=== PATIENT | male | born 1985 | race Caucasian/White ===

== ENCOUNTER 2022-03-18 19:46 | Emergency (ER) | payer OTHER, SELFPAY ==
[2022-03-18 19:46] VITALS: BP 135/85; PULSE 101; RESP 16; TEMP 36.6; O2SAT 99; BMI 32.3
--- NOTE | 2022-03-18 20:13 | EKG12_ITS ---
Test Reason : CP Blood Pressure : / mmHG Vent. Rate : 089 BPM Atrial Rate : 089 BPM P-R Int : 138 ms QRS Dur : 104 ms QT Int : 362 ms P-R-T Axes : -04 027 010 degrees QTc Int : 440 ms Normal sinus rhythm Normal ECG Confirmed by LEOPOLDO DICK MD ([id number]), video editor MATHEW GARCIA ([id number]) on 03/20/2022 12:17:08 PM Referred By: ANA Confirmed By:LEOPOLDO DICK MD
--- NOTE | 2022-03-18 20:19 | RAD_ITS ---
INDICATION: chest pain EXAMINATION/TECHNIQUE: X-RAY - portable upright AP chest x-ray COMPARISON: None. FINDINGS: LINES/DEVICES: None. LUNGS: No consolidation, edema or effusion. No pneumothorax. MEDIASTINUM AND CARDIOVASCULAR STRUCTURES: Cardiac silhouette not enlarged. Central airways and mediastinal contour are unremarkable. BONES AND SOFT TISSUES: Unremarkable. RAD/Chest 1 View (Portable) IMPRESSION: No radiographic evidence of acute cardiopulmonary disease. Electronically Signed: Zca Conteh MD at 20:42 EST ,
[2022-03-18 20:22] LABS: Absolute Lymphocyte Count 2.63 X10^3/uL (0.83-4.51); Absolute Neutrophil Count 5.4 X10^3/uL (2.0-7.7); Basophil# 0.09 X10^3/uL; Eosinophil# 0.53 X10^3/uL; Eosinophils% 5.6 % (0-5); Hematocrit 42.9 % (40-54); Hemoglobin 14.6 g/dL (13.0-16.5); Lymphocyte # 2.63 X10^3/ul (0.83-4.51); Lymphocyte % 27.8 % (19-41); Mean Corpuscular Hgb 32.5 pg (27.0-32.0); Mean Corpuscular Volume 95.5 fL (80-94); Monocyte# 0.82 X10^3/uL; Monocyte% 8.7 % (0-10); NRBC Flagged by Analyzer 0 % (0-5); Neutrophil # 5.36 X10^3/uL (2.7-7.7); Neutrophil % 56.5 % (47-70); Platelet Count 208 K/mm3 (150-450); RBC Distribution Width CV 12.5 % (11.6-14.6); RBC Distribution Width SD 43.5 fl (35.1-43.9); Red Blood Count 4.49 M/mm3 (4.6-6.2); White Blood Count 9.5 K/mm3 (4.4-11.0)
[2022-03-18 20:37] LABS: Anion Gap 7 (5-15); BUN 13 mg/dL (7-18); Calcium,Total 9.1 mg/dL (8.5-10.1); Chloride 107 mmol/L (98-107); Creatinine, Serum 0.93 mg/dL (0.70-1.30); EST Glomerular Filtration Rate 96 mL/min (>60); Est Glom Filt Rate - Afr Amer 117 mL/min (>60); Estimated Creatinine Clearance 118.21 ml/min; Glucose 106 mg/dL (74-106); Potassium 3.7 mmol/L (3.5-5.1); Sodium Level 141 mmol/L (136-145); Troponin-I HS (w/2H Reflex) 5 pg/mL (3.0-78.0)
[2022-03-18 21:25] VITALS: PULSE 81; RESP 18; O2SAT 98
[2022-03-18 22:18] LABS: Reflex Troponin-HS? (from REC) Y
--- NOTE | 2022-03-18 22:24 | EDS_ITS ---
HPI History of Present Illness Chief Complaint: Chest Pain Narrative Narrative: 36-year-old male presenting with left-sided upper chest wall pain. He has a history of cervical spine radiculopathy and C6-C7. He sees a chiropractor for this. He states he is never really had the pain radiating down to the front of his chest before. He denies any cardiac risk factors. He does not smoke cigarettes. He states he is physically active. No history of early cardiac disease in his family. No shortness of breath, fever, chills. No history of trauma. No DVT/PE risk factors and no history. PFSH PFSH Allergy/AdvReac Type Severity Reaction Status Date / Time No Known Allergies Allergy Verified 03/18/22 20:13 Surgical History Hx of hernia repair Social History Smoking Status: Never smoker ROS ROS ED Constitutional Constitutional ED: Denies chills, fever(s) or sweats Eyes Eyes: Denies blurry vision or change in vision ENT ENT ED: Denies ear pain or sore throat Cardiovascular Cardiovascular: Reports chest pain; Denies palpitations or racing heartbeat Respiratory/Chest Respiratory/Chest: Denies cough, dyspnea or sputum Gastrointestinal Gastrointestinal: Denies abdominal pain, constipation, diarrhea, nausea or v omiting Genitourinary Genitourinary ED: Denies dysuria, hematuria or urinary frequency Musculoskeletal Musculoskeletal: Denies arthralgias, myalgias or neck pain Integumentary Denies abscess, Abrasions or rash Neurologic Neurologic: Denies headache(s), paresthesias or weakness Psychiatric Psychiatric: Denies anxiety, depression, suicidal ideation or suicidal thoughts Endocrine Endocrinology: Denies polydipsia or polyuria EXAM Physical Exam Const Vital Signs: 03/18/22 19:46 03/18/22 20:11 03/18/22 20:14 Temperature 97.8 F Temperature Source Temporal Pulse Rate 101 H Respiratory Rate 16 Respiratory Effort Normal Non-Labored Blood Pressure 135/85 H Blood Pressure Mean 101 Pulse Ox 99 Oxygen Delivery Method Room Air Room Air 03/18/22 21:25 Temperature Temperature Source Pulse Rate 81 Respiratory Rate 18 Respiratory Effort Blood Pressure Blood Pressure Mean Pulse Ox 98 Oxygen Delivery Method Positive well nourished General Appearance ED: Negative for pallor HEENT Reports TM's clear and moist mucous membranes normocephalic Tympanic Membrane ED: Yes TM's clear Chest Wall inspection of chest normal and palpation of chest normal Resp normal respiratory effort and clear to auscultation bilaterally Cardio regular rate and regular rhythm GI normal to inspection, nondistended, normoactive bowel sounds Extremity normal to inspection Neuro oriented x3 and CN's II-XII intact bilaterally Sensorium / Orientation: awake and alert Psych mental status grossly normal Skin no rashes or lesions noted and no wounds General Skin Exam: Negative for jaundice or pallor Heart Score History: Slightly/Non-Suspicious ECG: Normal Age: </= 45 years Risk Factors: No Risk Factors Troponin: </= Normal Limit Score: 0 MDM MDM MDM Narrative Medical decision making narrative: 36-year-old male presenting with chest wall pain. He does describe it as pressure or sharp. It is more radiating from his neck. He has a history of cervical radiculopathy. He denies any trauma. Cannot reproduce it on exam. Lungs clear to auscultation bilaterally. Heart regular rate and rhythm without murmur. I suspect this is likely radicular in nature. CBC will be assessed for white blood cell count, hemoglobin, platelets, differential. BMP for renal function electrolytes. High sensitive troponin also will be drawn. Low suspicion for PE. Patient's vital signs are stable he is afebrile. CBC and BMP essentially normal. High-sensitivity troponin 5. Chest x-ray my interpretation shows no acute process. Radiologist interprets this and agrees. EKG sinus rhythm with a ventricular rate of 89 bpm without sign of ischemic change or dysrhythmia. At this point I feel the patient is stable for discharge home. This is unlikely to be cardiac. Return precautions discussed. Impression: 1. Chest wall pain Lab Data Attestation: I reviewed the patient's lab results. Labs: Laboratory Results - last 24 hr 03/18/22 03/18/22 19:55 19:55 WBC 9.5 RBC 4.49 L Hgb 14.6 Hct 42.9 MCV 95.5 H MCH 32.5 H MCHC 34.0 RDW Std Deviation 43.5 RDW Coeff of Frances 12.5 Plt Count 208 MPV 10.0 Immature Gran % (Auto) 0.400 Neut % (Auto) 56.5 Lymph % (Auto) 27.8 [place] % (Auto) 8.7 Eos % (Auto) 5.6 H Baso % (Auto) 1.0 Absolute Neuts (auto) 5.4 Absolute Lymphs (auto) 2.63 Nucleated RBC % 0 Sodium 141 Potassium 3.7 Chloride 107 Carbon Dioxide 27.0 Anion Gap 7 BUN 13 Creatinine 0.93 Estim Creat Clear Calc 118.21 Est GFR (MDRD) Af Amer 117 Est GFR (MDRD) Non-Af 96 BUN/Creatinine Ratio 14.0 Glucose 106 Calcium 9.1 Troponin I High Sens 5 Radiography Diagnostic Testing: Clinical Impression(s) from Imaging Studies Chest X-Ray 03/18/22 20:19 IMPRESSION: No radiographic evidence of acute cardiopulmonary disease. Electronically Signed: Zac Conteh MD at 20:42 EST Reading Location ID and State: [facility], later [facility] / [place] Tel , Service support , Discharge Plan Triage Chief Complaint: Chest Pain ED Provider: Calderon Calderon Dx/Rx/DC Orders Instructions: ED Chest Pain, Noncardiac Primary Care Provider: Eriberto Carl Referrals: Eriberto Carl DO [Primary Care Provider] - Disposition Disposition: Home, Self Care Discharge Date/Time: 03/18/22 21:25
== END 2022-03-18 21:25 | disposition home or self-care (01) ==
PROVIDERS: Emergency Provider Student in an Organized Health Care Education/Training Program; PCP Family Medicine; Visit Provider Student in an Organized Health Care Education/Training Program
DX: R07.89 Other chest pain (principal)
CPT/HCPCS: 71045; 80048; 84484; 85025; 93005; 99284; A4216

== ENCOUNTER → 2024-03-14 | Outpatient (CLI) | payer OTHER, SELFPAY ==
--- NOTE | 2024-03-14 14:09 | RAD_ITS ---
PROCEDURE: Left 2nd finger radiographs, three views REASON FOR EXAM: Mass TECHNIQUE: Three views of the left 2nd finger were obtained. COMPARISON: None FINDINGS: Three views of the left 2nd finger were obtained. No acute fracture or dislocation. Joint spaces are maintained. There is a convex appearance of the soft tissues volar mid left 2nd finger on the lateral projection. RAD/Finger(s) Min 2 Views IMPRESSION: No acute bony abnormality of the left 2nd finger. There is convex appearance of the soft tissues mid volar aspect of the left 2nd finger on the lateral projection. Precise etiology is uncertain, and could be due to infectious/inflammatory/posttraumati c, or neoplastic etiologies. Soft tissue biopsy/surgical excision versus MRI evaluation may be considered. Reading Location: [facility]
== END | disposition home or self-care (01) ==
LOC: RAD 13:56
PROVIDERS: PCP Family Medicine; Referring Provider Surgery Plastic and Reconstructive Surgery; Visit Provider Surgery Plastic and Reconstructive Surgery
DX: M79.645 Pain in left finger(s) (principal)
CPT/HCPCS: 73140

== ENCOUNTER → 2024-03-19 | Outpatient (CLI) | payer OTHER, SELFPAY ==
--- NOTE | 2024-03-19 15:19 | US_ITS ---
PROCEDURE: EXT NON VASC LIMITED/SOFT TISS REASON FOR EXAM: Soft tissue mass. TECHNIQUE: Ultrasound imaging of left 2nd finger. COMPARISON: None. US/Ext Non Vasc Limited/Soft Tiss IMPRESSION: Within the deep subcutaneous tissues in the area of concern left 2nd finger, a hypovascular solid appearing nodule is measured at 8 x 8 x 4 mm. No involvement of the subjacent tendons is seen. No free or loculated fluid collection is noted. Differential diagnosis is extensive, including granuloma, fibroma, and other pr ocesses. Reading Location: [address]
== END | disposition home or self-care (01) ==
LOC: US 15:16
PROVIDERS: PCP Family Medicine; Referring Provider Surgery Plastic and Reconstructive Surgery; Visit Provider Surgery Plastic and Reconstructive Surgery
DX: M79.89 Other specified soft tissue disorders (principal)
CPT/HCPCS: 76882

== ENCOUNTER 2024-04-16 07:12 | Day surgery (SDC) | payer OTHER, SELFPAY ==
[2024-04-16] VITALS (7 sets, daily range): BP systolic 95–110; BP diastolic 65–79; PULSE 67–85; RESP 16; TEMP 36.2–36.7; O2SAT 93–98; BMI 30.2
--- NOTE | 2024-04-16 07:14 | PCM.PRE.AN2 ---
ASA Classification* ASA Classification ASA Classification: 2 Assessment & Plan Anesthesia* Anesthesia Assessment Anesthesia Assessment: Discussed sedation and/or anesthesia options, risks, benefits, and alternatives with patient/parents/legal guardian/POA. Questions invited. The patient/parents/legal guardian/POA seems to understand and agrees to proceed with anesthesia plan. Reviewed the physical assessment, medical history, allergy history and patient home medications list prior to surgery/procedure/anesthetic and documented any changes. Performed airway and anesthesia risk assessments. Anesthesia Type Anesthesia Type: MAC Anesthesia Focused Assessment* Airway Assessment Mouth opens: >3 cm Mallampati Score: II Focused Labs Anesthesia Preop lab: CBC WBC 9.5 K/mm3 (4.4-11.0) 03/18/22 19:55 03/18/22 RBC 4.49 M/mm3 (4.6-6.2) L 03/18/22 19:55 03/18/22 Hgb 14.6 g/dL (13.0-16.5) 03/18/22 19:55 03/18/22 Hct 42.9 % (40-54) 03/18/22 19:55 03/18/22 Plt Count 208 K/mm3 (150-450) 03/18/22 19:55 03/18/22 CHEMISTRY Potassium 3.7 mmol/L (3.5-5.1) 03/18/22 19:55 03/18/22 Sodium 141 mmol/L (136-145) 03/18/22 19:55 03/18/22 BUN 13 mg/dL (7-18) 03/18/22 19:55 03/18/22 Creatinine 0.93 mg/dL (0.70-1.30) 03/18/22 19:55 03/18/22 Glucose 106 mg/dL (74-106) 03/18/22 19:55 03/18/22 COAG Pre-Assessment Diagnosis/Proposed Procedure Planned Operative Procedure(s): (L) Left index finger mass excision Anesthesia History Anesthesia History - digital commentator: Anesthesia History - digital commentator Hx Hospitalization No 04/07/24 16:13 Any Problems With Anesthesia No 04/07/24 16:13 Cholinesterase deficiency No 04/07/24 16:13 You/Your Family Experience No 04/07/24 16:13 fever (hyperthermia) with Relationship Recent Exposure to Contagious Disease Does patient have nerve No 04/07/24 16:13 stimulator Patient instructed to have device shut off --Does patient have Pacemaker or ICD? When Was Last Pacemaker Check QUESTION #4 FULL TEXT: You/Your Family Experience fever (hyperthermia) with Anesthesia Last Oral Intake Last Oral intake: Last Oral Intake NPO since Meds taken in AM with sips of water? Meds patient instructed to take am of surgery PONV PONV - digital commentator: PONV - digital commentator Female No 04/07/24 16:13 HX of Motion Sickness No 04/07/24 16:13 HX of N/V After Surgery No 04/07/24 16:13 Non-Smoker No 04/07/24 16:13 Duration of Surgery greater Yes 04/07/24 16:13 than 60 minutes Number of Risk Factors 1 04/07/24 16:13 PONV Score Low Risk 04/07/24 16:13 Height & Weight Height & Weight: Anesthesia: Height & Weight Height 6 ft 04/03/24 16:34 Respiratory Assessment Respiratory Assessment - digital commentator: Respiratory Tract Infection Hx - digital commentator Hx Respiratory Tract Infection No 04/07/24 16:13 STOP Sleep Apnea STOP Sleep Apnea - digital commentator: STOP Sleep Apnea - digital commentator Hx Hypertension No 04/07/24 16:13 Hx Sleep Apnea No 04/07/24 16:13 CPAP BIPAP Do you snore loudly (louder No 04/07/24 16:13 than talking or can be heard Do you often feel tired/ No 04/07/24 16:13 fatigued/ sleepy during daytime? Has anyone observed you stop No 04/07/24 16:13 breathing during sleep? STOP Results Negative 04/07/24 16:13 QUESTION #5 FULL TEXT : Do you snore loudly (louder than talking or can be heard through closed doors)? 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 Specify any problems Hx of Preganancy in last 3 N/A 04/07/24 16:13 Months Nurse Filling Out Transfusion MGRIFFITH 04/07/24 16:13 & Questions: Date: 04/07/24 04/07/24 16:13 Time: 16:15 04/07/24 16:13 Patient unable to answer at this time (ie. confused, unrespo /Reproduction History /Reproductive History - digital commentator: /Reproductive Hx- digital commentator Hx Now Gestational Age (in weeks): EDC: Hx Hx Para Hx Section SAB Active Medications Active Medications: Current Medications Generic Name Dose Route Start Last Admin Trade Name Freq PRN Reason Stop Dose Admin Cefazolin Sodium 2 gm/ N/A 20 mls @ 400 mls/hr 04/16/24 08:50 IV 04/16/24 08:52 PREOP [facility] Medical History Alcohol use Chews tobacco Home Medications ?Medication ?Instructions ?Recorded ?Last Taken ?Type semaglutide 0.25 mg or 0.5 mg (2 0.5 mg subcut HEAD 04/07/24 04/06/24 History mg/3 mL) subcutaneous pen injector (Ozempic) Allergy/AdvReac Type Severity Reaction Status Date / Time No Known Allergies Allergy Verified 04/07/24 16:10 Family History Other Cancer Diabetes Surgical History History of colonoscopy Hx of hernia repair Social History Smoking Status: Current every day smoker tobacco type: smokeless tobacco Review of Systems (Anesthesia) ROS Narrative System reviewed and no additional complaints, except as documented.
--- NOTE | 2024-04-16 08:22 | PCM.HP.STD ---
HPI - General HPI Narrative Dion Price is a delightful [id number] 38-year-old male with no significant past medical history who has a left index finger mass. 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 He reports that the mass started as a callus but he was playing golf about a year ago and all of a sudden it became larger and larger. No constitutional symptoms. No lumps or bumps in his left upper extremity other than the spot. He is not a smoker. No personal or family history of blood clots 27 MAR 2024: Doing well overall. Underwent ultrasound and x-ray. Ultrasound demonstrated subcutaneous well-circumscribed mass, x-ray demonstrated the soft tissue mass as well with no bony abnormalities. Patient does use chewing tobacco products, but does not smoke as noted above. We talked about wound healing problems from the nicotine, and I discussed cessation. Current Encounter (DATE OF SURGERY H&P UPDATE): I saw and examined the patient this morning in pre-operative holding. We discussed risks and benefits of today's surgery and they would like to proceed. NO CHANGE in health history since last seen and evaluated. Ready to proceed with surgery. PFSH Medical History Alcohol use Chews tobacco Home Medications ?Medication ?Instructions ?Recorded ?Last Taken ?Type semaglutide 0.25 mg or 0.5 mg (2 0.5 mg subcut HEAD 04/07/24 04/06/24 History mg/3 mL) subcutaneous pen injector (Ozempic) Allergy/AdvReac Type Severity Reaction Status Date / Time No Known Allergies Allergy Verified 04/16/24 07:52 Family History Other Cancer Diabetes Surgical History History of colonoscopy Hx of hernia repair Social History Smoking Status: Current every day smoker tobacco type: smokeless tobacco Vital Signs Vital Signs Vital Signs: 04/16/24 07:52 04/16/24 07:52 Temperature 97.1 F L Temperature Source Temporal Pulse Rate 77 Respiratory Rate 16 Respiratory Pattern Normal Blood Pressure 109/79 Blood Pressure Mean 89 Blood Pressure Source Monitor Blood Pressure Position Semi-Fowlers Blood Pressure Location Left Arm Pulse Ox 98 Oxygen Delivery Method Room Air Weight Weight: 222 lb 10.67 oz Body Mass Index (BMI) 30.2 Physical Exam Narrative Left upper Extremity Inspection: 1 x 1.5 cm mass on the volar surface of the left index finger at the level of P2 immediately over the A4 santa Palpation: Mobile, no Tinel's sign Motor: Able to bend and extend all MP, PIP, and DIP joints. Sensory: Intact to light touch on the radial and ulnar borders. Vascular: Finger tips are warm and well perfused with <2 second capillary refill. No left axillary lymphadenopathy or any antecubital fossa lymphadenopathy Assessment & Plan Assessment/Plan (1) Finger mass, left: PLAN: Volar surface of the left index finger We discussed the differential diagnosis for the mass. Common masses in the hand include ganglion cyst of tendon sheath, giant cell tumor of tendon sheath, and lipoma. All these masses are benign. We also discussed that over 95% of the masses found in the hand and fingers are benign, and not cancerous. Treatment options for these masses include observation vs surgical excision. We briefly discussed risks of excision, including damage to surrounding structures including nerves. We talked about risk of infection and bleeding as well. I talked the patient about obtaining an x-ray and an ultrasound and then discussing the diagnosis further. He was in agreement with this plan. Follow-up after ultrasound Plan from 27 March 2024: I talked the patient extensively about the risks of surgery, including bleeding, infection, damage to surrounding structures (especially digital nerves or arteries in the finger), surgical site dehiscence and wound formation, poor scarring, need for wound care, need for repeat operations, failure to obtain the desired result, DVT/PE, and the risks of anesthesia including (albeit we will do under local plus or minus MAC). The benefits and alternatives of this surgery were also discussed. All of their questions were answered, and they agreed to proceed with surgery. Plan for excision under MAC/local (digital block) in the operating room. INTERVAL H&P PLAN, DATE OF SURGERY: We will proceed with surgery today. Reiterated above risks and benefits in pre-op as well as the alternatives. We talked especially about high recurrence rates of certain tumors, especially giant cell tumors. We talked especially about digital nerve risks/injury.
--- NOTE | 2024-04-16 08:40 | PCM.OPRPT ---
Operative Report (Standard) Operative Information Date of Procedure: 04/16/24 Pre-Operative Diagnosis: 1) Left index finger mass (Volar, over P2) Post-Operative Diagnosis: Same Surgery/Procedure Performed: 1) Excision of left index finger mass with primary closure,1.1 by 1.1 centimeter (CPT: 77712) special certificate dictator: No Type of Anesthesia: Local MAC (8 cc of 50/50 mixture of 1% lidocaine with 0.25% Marcaine ) RN Documented Start/Stop Times: Operation Date: 04/16/24 08:50 Case Time Into Pre-Op 04/16/24 07:17 Out of Pre-Op 04/16/24 08:54 Anesthesia Start 04/16/24 08:56 Into Room 04/16/24 08:56 Procedure Start 04/16/24 09:16 Procedure End 04/16/24 09:30 Anesthesia End 04/16/24 09:36 Out of Room 04/16/24 09:36 Into Recovery 04/16/24 09:39 Out of Recovery 04/16/24 09:58 Into Phase II Recovery 04/16/24 09:59 Out of Phase II 04/16/24 10:29 Procedure Start Time: 09:16 Procedure Stop Time: 09:30 Select all DRAINS/GRAFTS/IMPLANTS that apply: None Estimated Blood Loss: minimal Specimen collected: Yes Description of specimen(s) removed: Left index finger volar mass Description of surgery: Indications: Dion Elizondo is a 38 YO male with a left index finger volar mass over P2. Presents today for excision. I talked to him about the risks, benefits, and alternatives of the procedure. He elected to proceed with excision and primary closure today in the operating room. Procedure details: Patient was quickly identified in preoperative holding and his left index finger was marked as well as the mass. He was taken back to the operating room where he was administered sedation and a local block as noted above. He was prepped and draped in sterile fashion. A timeout was performed. A turnicot was placed (with care taken to remove the turnicot). With use of the microscope, and oblique Wayne incision was made over the mass and careful dissection was carried out with 15 blade scalpel and a nerve dissector such as circumferentially get around the mass and removed in 1 piece and sent to pathology. Care was taken to protect and preserve the digital nerves and arteries as well as the tendon sheath/santa system. The mass measured1.1 by 1.1 centimeters. The wound was irrigated with copious amounts normal saline and bipolar electrocautery was used for hemostasis. The wound was closed with horizontal mattress 4-0 nylon sutures following removal of the turnicot. Postoperative plan: Follow-up in 1 week in clinic to discuss pathology and for wound check. Okay for normal range of motion of the finger but no lifting. Band-Aid for 2 days and he can get it wet on Sunday, 18 April 2024. Surgical Findings: Consistent with epidermal inclusion cyst Complications Complications: No
--- NOTE | 2024-04-16 08:50 | MASS_PTH ---
PATIENT: CHARLIE MONZON LOC: [facility] [place] U#:[id number] AGE/SX: 38/M ROOM: RE04/16/[address]: Dr. Zhao Lugo MD : [id number] BED: DIS: 04/16/2024 SPEC #: [id number] RECD: 04/16/24 12:38 STATUS: [place] REQ #: [id number] ABHISHEK: 04/16/24 08:[address]: Zhao Lugo DEPT: SURGICAL PATHOLOGY RECD BY: José Miguel Ashley ENTERED: 04/16/24 12:38 SP TYPE: Mass OTHR DR: Dr. Eriberto Carl, DO Tissues: Finger, NOS Procedures: Surgery Specimen Level IV HEADER OPERATION: Left index finger mass excision PRE-OP DIAGNOSIS: Finger mass, left TISSUE SUBMITTED: Left index finger mass MICROSCOPIC DIAGNOSIS LEFT INDEX FINGER MASS, EXCISION:Epidermal inclusion cyst containing a nucleate squamous materialTorey Mora MD, 04/20/2024 MICROSCOPIC DESCRIPTION Slides are reviewed. GROSS DESCRIPTION The specimen is received in a container labeled with the patient's name and designated left index finger mass. The specimen consists of a lobule of white soft tissue along with multiple tiny fragments of grumous white material. The lobule measures 1 x 0.6 x 0.4 cm and the grumous material has an aggregate measurement of 2 x 0.5 x 0.1 cm. TE1. eh 04/17/24 CPT:74947,TC:5
[2024-04-16] MEDS: Cefazolin 2 GM in Syringe IV (09:00)
[2024-04-16] MEDS: Lidocaine 1% (20 ml mdv) 20 ML Vial (09:05)
[2024-04-16] MEDS: Bupivacaine 0.25% 30 ML Vial (09:05)
--- NOTE | 2024-04-16 09:41 | PCM.POST.ANE ---
Anesthesia: Postop Eval I Current Vital Signs Temperature: 97.1 F Pulse Rate: 85 Blood Pressure: 110/73 Respiratory Rate: 16 Pulse Ox: 95 Oxygen Delivery Method: Room Air Assessment Airway patent: Yes Spontaneous unlabored respirations: Yes Mental status: Awake and Calm nausea: No Vomiting: No Anesthesia Complication: No Fluid Hydration Crystalloid volume administer (ml): 200 Total IV fluid infused: 200 Progress Note Anesthesia document: Postop Eval 1 completed: Yes
--- NOTE | 2024-04-16 10:52 | POSTOPAN2_ITS ---
Anesthesia Postop Eval I Sum Postop Eval Completion status Anesthesia document: Postop Eval 1 completed: Yes Anesthesia Postop Eval I Summary Anesthesia Postop Eval I Summary: Anesthesia Postop Eval I: Assessment Summary Airway patent Yes 04/16/24 09:41 OUTSOLES [email or web address] [email or web address] Spontaneous unlabored Yes 04/16/24 09:41 OUTSOLES [email or web address] respirations Mental status Awake,Calm 04/16/24 09:41 OUTSOLES [email or web address] nausea No 04/16/24 09:41 OUTSOLES CHANNEL [email or web address] Vomiting No 04/16/24 09:41 OUTSOLES [email or web address] Anesthesia Postop Eval I: Fluid Summary Crystalloid volume administer 200 04/16/24 09:41 OUTSOLES [email or web address] [email or web address] (ml) Colloids volume administered ( ml) Blood Product volume administered (ml) Total IV fluid infused 200 04/16/24 09:41 OUTSOLES [email or web address] Anesthesia Postop Eval I: Summary Notes Anesthesia Complication No 04/16/24 09:41 OUTSOLES [email or web address] [email or web address] Anesthesia Complication Comment: Post-operative progress note Anesthesia: Postop Eval II Evaluation Mental status: Awake Pain Level: 0 nausea: No Vomiting: No
--- NOTE | 2024-04-16 10:52 | PCM.POSTANE2 ---
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
== END 2024-04-16 10:29 | disposition home or self-care (01) ==
LOC: SDC 07:13 → AC 07:15
PROVIDERS: PCP Family Medicine; Referring Provider Surgery Plastic and Reconstructive Surgery; Visit Provider Surgery Plastic and Reconstructive Surgery
PROC: (CPT 26055; principal; 2024-04-16 08:40)
DX: L72.0 Epidermal cyst (principal); F17.220 Nicotine dependence, chewing tobacco, uncomplicated; Z79.85 Long-term (current) use of injectable non-insulin antidiabetic drugs
CPT/HCPCS: 26160; 01810; 88305; A4216